=== PATIENT | female | born 1950 | race Caucasian/White ===

== ENCOUNTER 2017-04-20 01:38 | Inpatient (IN) | payer MEDICARE, OTHER ==
[~2017-04-20] VITALS: Ht 162.6 cm; Wt 77.1 kg
[~2017-04-20 01:38] MED LIST: DIOVAN160 MG PO; METFORMIN HCL500 MG PO; PRAVASTATIN SOD80 MG PO
[2017-04-20 02:12] LABS: BASOPHILS # (AUTO) 0.1 (0.0-0.1); BASOPHILS % 0.5 % (0.0-1.0); EOSINOPHILS # (AUTO) 0.5 (0.0-0.4); HEMATOCRIT 40.3 % (34.2-44.1); HEMOGLOBIN 13.2 g/dL (12.0-16.0); LYMPHOCYTES # (AUTO) 6.4 (1.0-3.2); LYMPHOCYTES % 42.8 % (18.0-39.1); MEAN CORPUSCULAR HEMOGLOBIN 30.3 pg (28-32); MEAN CORPUSCULAR HGB CONC 32.8 g/dL (31-35); MEAN CORPUSCULAR VOLUME 92.6 fL (81-99); NEUTROPHILS # (AUTO) 6.9 (2.1-6.9); NEUTROPHILS % 46.3 % (38.7-80.0); PLATELET COUNT 258 x10e3/uL (140-360); RED BLOOD COUNT 4.35 x10e6/uL (3.6-5.1); RED CELL DISTRIBUTION WIDTH 12.1 % (11.7-14.4)
[2017-04-20 02:20] LABS: INR 0.83; PARTIAL THROMBOPLASTIN TIME 24.7 seconds (23.8-35.5); PROTHROMBIN TIME 11.8 seconds (11.9-14.5)
[2017-04-20 02:29] LABS: ALANINE AMINOTRANSFERASE 26 IU/L (0-55); ALBUMIN 3.3 g/dL (3.5-5.0); ALBUMIN/GLOBULIN RATIO 0.9 (0.8-2.0); ALKALINE PHOSPHATASE 84 IU/L (40-150); ANION GAP 15.5 mmol/L (8-16); BLOOD UREA NITROGEN 26 mg/dL (7-26); BUN/CREATININE RATIO 23 (6-25); CALCIUM 8.7 mg/dL (8.4-10.2); CARBON DIOXIDE 22 mmol/L (22-29); CHLORIDE 104 mmol/L (98-107); CREATINE KINASE 28 IU/L (29-168); CREATININE, SERUM 1.11 mg/dL (0.57-1.11); EST GLOMERULAR FILTRATION RATE 49 ML/MIN (60-); GLUCOSE 290 mg/dL (74-118); MAGNESIUM 1.4 MG/DL (1.3-2.1); POTASSIUM 3.5 mmol/L (3.5-5.1); SODIUM 138 mmol/L (136-145)
[2017-04-20 02:35] LABS: B-TYPE NATRIURETIC PEPTIDE2 < 10.0 pg/mL (0-100)
--- NOTE | 2017-04-20 03:07 | Diagnostic Imaging Report ---
EXAM: CHEST SINGLE (PORTABLE), AP 1 view ORDER DATE: 04/20/2017 2:03 AM Time stamp on exam: 0230 hours INDICATION: Cough, shortness of breath COMPARISON: None FINDINGS: LINES/TUBES: None LUNGS: No consolidations or edema. Mild bibasilar atelectasis. PLEURA: No effusions or pneumothorax. HEART AND MEDIASTINUM: Normal size and contour. BONES AND SOFT TISSUES: No acute findings. IMPRESSION: Mild bibasilar atelectasis. Signed by: Dr. Khushbu Khan M.D. on 04/20/2017 3:03 AM
[2017-04-20] MEDS ORDERED: SODIUM CHLORIDE 0.9% 1000ML 1,000 ML IV STA ×2 (03:17→05:20)
[2017-04-20] MEDS ORDERED: VANCOMYCIN 1GM/NS 250 ML 250 ML IV STA (03:17)
[2017-04-20] MEDS: CEFEPIME HCL 2 GM VIAL IV SCH ×2 (03:40→15:30)
[2017-04-20] MEDS: AZITHROMYCIN 500MG/NS 250 ML 250 ML IV SCH (03:45)
[2017-04-20 05:40] LABS: BILIRUBIN,URINE NEGATIVE (NEGATIVE); KETONES,URINE NEGATIVE (NEGATIVE); LEUKOCYTE ESTERASE ,URINE TRACE (NEGATIVE); NITRITE,URINE NEGATIVE (NEGATIVE); PROTEIN,URINE DIPSTICK NEGATIVE (NEGATIVE); URINE UROBILINOGEN 0.2 mg/dL (0.2 - 1)
[2017-04-20 05:41] LABS: CLARITY,URINE CLEAR (CLEAR); COLOR,URINE YELLOW (YELLOW)
[2017-04-20 05:44] LABS: BACTERIA,URINE FEW /HPF; EPITHELIAL CELLS,URINE FEW /LPF; MUCUS,URINE MODERATE (RARE); RBC,URINE 0-5 /HPF (0-5)
[2017-04-20] MEDS ORDERED: DEXTROSE 50% SYRINGE 50 ML IV PRN (05:45)
[2017-04-20] MEDS ORDERED: ACETAMINOPHEN 325 MG TAB PO PRN (05:45)
[2017-04-20] MEDS: METHYLPREDNISOLONE SOD SUCC 125 MG/2ML VIAL IV SCH ×3 (06:07→22:13)
[2017-04-20] MEDS: SODIUM CHLORIDE 0.9% 1000ML 1,000 ML IV SCH ×2 (06:17→15:30)
--- OUTSIDE RECORDS SUMMARY | 2017-04-20 06:22 | XMS REPORT ---
Author Author [facility] Address Unknown Phone Unavailable Care Team Providers Care Arts Administrator Or Manager Name Role Phone JOO FONG Unavailable Unavailable Problems This patient has no known problems. Allergies, Adverse Reactions, Alerts This patient has no known allergies or adverse reactions. Medications This patient has no known medications. Results Test Description Test Time Test Comments Text Results Atomic Results Result Comments CHEST SINGLE (PORTABLE) [place] [address] Patient Name: ALBERT KRAMER MR #: [id number] : 1950 Age/Sex: 66/F Req #: [id number] Adm Physician: Ordered by: JOO FONG MD Report #: [id number] Location: ER Room/Bed: Procedure: [id number] DX/CHEST SINGLE (PORTABLE) Exam Date: 04/20/17 Exam Time: 0225 REPORT STATUS: Signed EXAM: CHEST SINGLE (PORTABLE), AP 1 view ORDER DATE: 04/20/2017 2:03 AM Time stamp on exam : 0230 hours INDICATION: Cough, shortness of breath COMPARISON: None FINDINGS: LINES/TUBES: None LUNGS: No consolidations or edema. Mild bibasilar atelectasis. PLEURA: No effusions or pneumothorax. HEART AND MEDIASTINUM: Normal size and contour. BONES AND SOFT TISSUES: No acute findings. IMPRESSION: Mild bibasilar atelectasis. Signed by: Dr. Loly Randall M.D. on 04/20/2017 3:03 AM Dictated By: LOLY RANDALL MD 2 Transcribed By: GLYNN on 04/20/17302 COPY TO: JOO FONG MD
[2017-04-20] MEDS: INSULIN REGULAR, HUMAN 100 UNIT/1 ML 3ML VIAL SQ SCH ×4 (07:30→22:13)
[2017-04-20 07:50] VITALS: BP 122/67
[2017-04-20 07:59] VITALS: BP 122/67
[2017-04-20 09:27] VITALS: BP 122/67
[2017-04-20] MEDS: PANTOPRAZOLE 40 MG 10ML VIAL IV SCH (10:22)
[2017-04-20] MEDS ORDERED: CHLORASEPTIC SPRAY 177 ML BTL MM PRN (10:30)
[2017-04-20 11:57] LABS: CHOL/HDL RATIO 4.1 (3.0-3.6)
[2017-04-20 12:31] VITALS: BP 121/57
[2017-04-20 12:40] LABS: CREATINE KINASE 28 IU/L (29-168)
--- NOTE | 2017-04-20 13:59 | History and Physical ---
PRIMARY CARE PHYSICIAN: Dr. Tubbs CHIEF COMPLAINT: Shortness of breath, cough, and loss of voice. HISTORY OF PRESENT ILLNESS: A 66-year-old woman with a history of asthma and pneumonia, now developing cough and shortness of breath, has been ongoing for about two weeks. Went to see a doctor, given doxycycline. For the past few days, she has been on steroid pack for more than a week. Worsened symptoms now with hoarse voice, came to the hospital. As she was found to be septic, she is admitted for further evaluation and management. PAST MEDICAL HISTORY: Diabetes mellitus type 2, pneumonia, asthma, hyperlipidemia, and hypertension. PAST SURGICAL HISTORY: Ankle surgery and rectal surgery. ALLERGIES: PER ELECTRONIC MEDICAL RECORDS. FAMILY/SOCIAL HISTORY: The patient is . She has 3 children. No alcohol, illicits, or cigarettes. MEDICATIONS: Per electronic medical records. REVIEW OF SYSTEMS: Denies any dizziness or chest pain. PHYSICAL EXAMINATION VITAL SIGNS: Have been reviewed. Pulse rate as high as 115. GENERAL: A sick-appearing woman, resting in the bed. HEENT: Anicteric. No oral lesions. She has hoarse voice. CARDIOVASCULAR: Normal S1 and S2. LUNGS: She has moderate breath sounds. ABDOMEN: Soft and nontender. EXTREMITIES: No edema or calf tenderness. NEUROLOGIC: She is alert and oriented times 3, moving all extremities. SKIN: Dry. PSYCHIATRIC: Flat affect. LABS: Reviewed. MEDICATIONS: Reviewed. ASSESSMENT AND PLAN: This is a 66-year-old woman. 1. Severe sepsis. She has acute kidney injury with leukocytosis, tachycardia, and urinary tract infection and other signs of infection. We will continue with antibiotics, IV cefepime and IV azithromycin and IV fluids. 2. Acute kidney injury. We will give IV fluids. 3. Urinary tract infection. Continue with treatment and followup labs. 4. Acute laryngitis. We will continue with antibiotics and IV steroids. 5. History of asthma. There is no significant wheezing at this time, but we will use nebulization treatment p.r.n. 6. Diabetes mellitus type 2. Glucose is 290. She is on steroids now . We will obtain hemoglobin A1c and lipid panel. 7. Hyperlipidemia. Continue with statin medication. 8. Hypertension. We will hold ARB at this time due to acute renal dysfunction. 9. Prophylaxis: We will use Lovenox and Pepcid. Job#: [id number] SAK
[2017-04-20 16:00] VITALS: BP 117/56
[2017-04-20] MEDS: FAMOTIDINE 20 MG TAB PO SCH (16:30)
[2017-04-20] MEDS: ENOXAPARIN SOD INJ 40 MG/0.4 ML SYR SC SCH (17:11)
[2017-04-20 20:00] VITALS: BP 121/60
[2017-04-20] MEDS: SIMVASTATIN 40 MG TAB PO SCH (22:13)
[2017-04-21] VITALS: BP 133/60
[2017-04-21] MEDS: SODIUM CHLORIDE 0.9% 1000ML 1,000 ML IV SCH ×3 (02:50→12:14)
[2017-04-21] MEDS: IPRATROPIUM BROMIDE 0.02% 2.5 ML NEB NEB PRN ×2 (03:10→11:00)
[2017-04-21] MEDS: ALBUTEROL SULF 0.083% NEB SOLN 3 ML NEB NEB PRN ×2 (03:10→10:59)
[2017-04-21] MEDS: AZITHROMYCIN 500MG/NS 250 ML 250 ML IV SCH (03:30)
[2017-04-21] MEDS: CEFEPIME HCL 2 GM VIAL IV SCH ×2 (03:30→15:30)
[2017-04-21 04:00] VITALS: BP 124/57
[2017-04-21] MEDS: METHYLPREDNISOLONE SOD SUCC 125 MG/2ML VIAL IV SCH ×3 (05:38→20:30)
[2017-04-21] MEDS: INSULIN REGULAR, HUMAN 100 UNIT/1 ML 3ML VIAL SQ SCH ×4 (07:30→20:45)
[2017-04-21] MEDS: FAMOTIDINE 20 MG TAB PO SCH ×2 (07:30→17:05)
[2017-04-21] MEDS: GUAIFENESIN/DEXTROMETHORPHAN LIQD 5 ML UDC NG SCH ×3 (07:30→21:58)
[2017-04-21 08:10] VITALS: BP 128/62
[2017-04-21] MEDS: PANTOPRAZOLE 40 MG 10ML VIAL IV SCH (08:56)
[2017-04-21] MEDS: BENZONATATE 100 MG CAP PO SCH ×3 (08:57→20:30)
[2017-04-21 09:23] VITALS: BP 128/62
[2017-04-21 12:38] VITALS: BP 100/57
[2017-04-21 14:51] LABS: CREATINE KINASE MB 2.9 ng/mL (0.00-5.00)
--- NOTE | 2017-04-21 15:48 | Progress Note ---
DATE: April 21, 2017 at 7 a.m. SUBJECTIVE: Overnight feeling better but still concerned about health. REVIEW OF SYSTEMS: Denies any dizziness. OBJECTIVE VITAL SIGNS: Reviewed and are within normal limits. GENERAL APPEARANCE: A tired-appearing woman resting in the bed. HEENT: Anicteric. Hoarse voice has improved to some degree. CARDIOVASCULAR: Normal S1 and S2. LUNGS: Moderate breath sounds, slightly reduced at the bases. ABDOMEN: Soft and nontender. Nondistended. EXTREMITIES: There is no edema or calf tenderness. NEUROLOGIC: Alert and oriented x3. Moving all extremities. SKIN: Dry. PSYCHIATRIC: Flat affect. LABS: Reviewed. MEDICATIONS: Reviewed. ASSESSMENT: A 66-year-old woman with: 1. Severe sepsis. 2. Acute kidney injury. 3. Urinary tract infection. 4. Acute laryngitis. 5. History of asthma. 6. Diabetes mellitus type 2. 7. Hypertension. 8. Hyperlipidemia. PLAN: 1. Continue antibiotics and follow up cultures. She is on IV cefepime and IV Azithromycin. 2. Continue IV fluids. 3. Follow up renal function. 4. Laryngitis is improving. 5. Schedule antitussive medications. 6. Obtain labs this morning. 7. Continue with physical therapy. 8. Hemoglobin A1c was 7.5, LDL 74 and triglycerides 153. Job#: [id number]
[2017-04-21 16:34] VITALS: BP 139/68
[2017-04-21] MEDS: ENOXAPARIN SOD INJ 40 MG/0.4 ML SYR SC SCH (17:08)
[2017-04-21] MEDS: SIMVASTATIN 40 MG TAB PO SCH (20:30)
[2017-04-22] MEDS: IPRATROPIUM BROMIDE 0.02% 2.5 ML NEB NEB PRN ×3 (01:45→20:10)
[2017-04-22] MEDS: ALBUTEROL SULF 0.083% NEB SOLN 3 ML NEB NEB PRN ×3 (01:45→20:10)
[2017-04-22] MEDS: AZITHROMYCIN 500MG/NS 250 ML 250 ML IV SCH (02:52)
[2017-04-22] MEDS: CEFEPIME HCL 2 GM VIAL IV SCH ×2 (02:52→14:37)
[2017-04-22] MEDS: GUAIFENESIN/DEXTROMETHORPHAN LIQD 5 ML UDC NG SCH ×3 (05:46→20:58)
[2017-04-22 07:00] VITALS: BP 119/61
[2017-04-22] MEDS: SODIUM CHLORIDE 0.9% 1000ML 1,000 ML IV SCH ×2 (07:30→14:15)
[2017-04-22 08:04] VITALS: BP 119/61
[2017-04-22] MEDS: FAMOTIDINE 20 MG TAB PO SCH ×2 (08:44→16:54)
[2017-04-22] MEDS: INSULIN REGULAR, HUMAN 100 UNIT/1 ML 3ML VIAL SQ SCH ×4 (08:44→21:01)
[2017-04-22] MEDS: BENZONATATE 100 MG CAP PO SCH ×3 (08:44→20:58)
[2017-04-22] MEDS: METHYLPREDNISOLONE SOD SUCC 125 MG/2ML VIAL IV SCH ×2 (08:44→20:58)
[2017-04-22] MEDS: PANTOPRAZOLE 40 MG 10ML VIAL IV SCH (08:44)
[2017-04-22 08:57] LABS: EOSINOPHILS % 0.1 % (0.0-6.0); HEMATOCRIT 30.7 % (34.2-44.1); HEMOGLOBIN 10.2 g/dL (12.0-16.0); LYMPHOCYTES # (AUTO) 1.4 (1.0-3.2); LYMPHOCYTES % 14.6 % (18.0-39.1); MEAN CORPUSCULAR HEMOGLOBIN 30.6 pg (28-32); MEAN CORPUSCULAR HGB CONC 33.2 g/dL (31-35); MEAN CORPUSCULAR VOLUME 92.2 fL (81-99); MONOCYTES # (AUTO) 0.2 (0.2-0.8); MONOCYTES % 2.2 % (4.4-11.3); NEUTROPHILS # (AUTO) 7.6 (2.1-6.9); NEUTROPHILS % 81.5 % (38.7-80.0); PLATELET COUNT 170 x10e3/uL (140-360); RED BLOOD COUNT 3.33 x10e6/uL (3.6-5.1); RED CELL DISTRIBUTION WIDTH 12.5 % (11.7-14.4)
[2017-04-22 09:18] LABS: CALCIUM 7.4 mg/dL (8.4-10.2); CREATININE, SERUM 0.96 mg/dL (0.57-1.11)
--- NOTE | 2017-04-22 09:43 | Progress Note ---
DATE: April 22, 2017 TIME: 6:45 a.m. OVERNIGHT: No events. REVIEW OF SYSTEMS: Denies any dizziness. VITAL SIGNS: Reviewed. OBJECTIVE GENERAL: A tired-appearing woman resting in bed. HEENT: Anicteric. CARDIOVASCULAR: Normal S1 and S2. LUNGS: Moderate breath sounds, slightly reduced at the bases. ABDOMEN: Soft, nontender and nondistended. EXTREMITIES: No edema. SKIN: Dry. PSYCHIATRIC: Normal affect. LABS: Reviewed. MEDICATIONS: Reviewed. ASSESSMENT: A 66-year-old woman. 1. Severe sepsis. 2. Acute kidney injury. 3. Urinary tract infection. 4. Acute laryngitis. 5. History of asthma. 6. Diabetes mellitus, type 2. Hemoglobin A1c 7.5, LDL 74, triglycerides 153. 7. Hypertension. 8. Hyperlipidemia. PLAN 1. Continue antibiotics and continue IV steroids. Continue titrating down. 2. Continue to receive IV fluids. 3. Continue antitussive medication. 4. Follow up labs. Obtain labs this morning. 5. Discharge planning to home. Job#: [id number]
[2017-04-22 13:09] VITALS: BP 142/79
[2017-04-22 16:57] VITALS: BP 163/83
[2017-04-22] MEDS: ENOXAPARIN SOD INJ 40 MG/0.4 ML SYR SC SCH (17:00)
[2017-04-22 20:00] VITALS: BP 137/65
[2017-04-22] MEDS: SIMVASTATIN 40 MG TAB PO SCH (20:58)
[2017-04-22 23:15] VITALS: BP 137/65
[2017-04-23] VITALS: BP 126/58
[2017-04-23] MEDS: SODIUM CHLORIDE 0.9% 1000ML 1,000 ML IV SCH (02:06)
[2017-04-23] MEDS: CEFEPIME HCL 2 GM VIAL IV SCH (03:58)
[2017-04-23] MEDS: AZITHROMYCIN 500MG/NS 250 ML 250 ML IV SCH (03:58)
[2017-04-23 04:00] VITALS: BP 158/71
[2017-04-23] MEDS: GUAIFENESIN/DEXTROMETHORPHAN LIQD 5 ML UDC NG SCH (06:04)
[2017-04-23] MEDS ORDERED: Chloraseptic MM (06:55)
[2017-04-23] MEDS ORDERED: FAMOTIDINE20 MG PO (06:55)
[2017-04-23] MEDS ORDERED: PREDNISONE20 MG PO (06:55)
[2017-04-23] MEDS ORDERED: TESSALON PERLE100 MG PO (06:55)
[2017-04-23] MEDS ORDERED: LEVAQUIN500 MG PO (06:55)
[2017-04-23] MEDS ORDERED: Guaifenesin/Dextromethorphan NG (06:55)
[2017-04-23 07:05] VITALS: BP 161/84
[2017-04-23 08:00] VITALS: BP 161/84
[2017-04-23] MEDS: INSULIN REGULAR, HUMAN 100 UNIT/1 ML 3ML VIAL SQ SCH ×2 (09:12→11:30)
[2017-04-23] MEDS: PANTOPRAZOLE 40 MG 10ML VIAL IV SCH (09:12)
[2017-04-23] MEDS: METHYLPREDNISOLONE SOD SUCC 125 MG/2ML VIAL IV SCH (09:12)
[2017-04-23] MEDS: FAMOTIDINE 20 MG TAB PO SCH (09:12)
[2017-04-23] MEDS: BENZONATATE 100 MG CAP PO SCH (09:12)
[2017-04-23 11:54] VITALS: BP 162/88
== END 2017-04-23 13:28 | disposition home or self-care (01) | DRG 872 ==
LOC: ER 01:38 → MED/SURG2 06:19
PROVIDERS: ADMIT Internal Medicine; ATTEND Internal Medicine
PROC: 05HA33Z Insertion of Infusion Device into Left Brachial Vein, Percutaneous Approach (ICD-10-PCS; principal; 2017-04-21)
DX: A41.9 Sepsis, unspecified organism (principal); N17.9 Acute kidney failure, unspecified; N39.0 Urinary tract infection, site not specified; J04.0 Acute laryngitis; R65.20 Severe sepsis without septic shock; I10 Essential (primary) hypertension; E11.9 Type 2 diabetes mellitus without complications; E78.5 Hyperlipidemia, unspecified; J45.909 Unspecified asthma, uncomplicated; F41.9 Anxiety disorder, unspecified
CPT/HCPCS: 36415; 36568; 71045; 80048; 80053; 80061; 81001; 82550; 82553; 82948; 83036; 83518; 83605; 83735; 83880; 84484; 85025; 85610; 85730; 87040; 87070; 87086; 87400; 93005; 94640; 96372; 99284; J0456; J0692; J1650; J2930; J7030

== ENCOUNTER → 2019-05-13 | Day surgery (SDC) | payer MEDICARE ==
[2019-05-12 13:29] LABS: BASOPHILS % 0.4 % (0.0-1.0); EOSINOPHILS # (AUTO) 0.2 (0.0-0.4); EOSINOPHILS % 1.8 % (0.0-6.0); HEMATOCRIT 38.2 % (34.2-44.1); HEMOGLOBIN 12.6 g/dL (12.0-16.0); LYMPHOCYTES # (AUTO) 1.9 (1.0-3.2); LYMPHOCYTES % 20.4 % (18.0-39.1); MEAN CORPUSCULAR HEMOGLOBIN 29.9 pg (28-32); MEAN CORPUSCULAR VOLUME 90.5 fL (81-99); MONOCYTES # (AUTO) 0.7 (0.2-0.8); MONOCYTES % 7.7 % (4.4-11.3); NEUTROPHILS # (AUTO) 6.5 (2.1-6.9); NEUTROPHILS % 69.4 % (38.7-80.0); PLATELET COUNT 226 x10e3/uL (140-360); RED BLOOD COUNT 4.22 x10e6/uL (3.6-5.1); RED CELL DISTRIBUTION WIDTH 12.7 % (11.7-14.4)
[2019-05-12 13:45] LABS: ANION GAP 10.4 mmol/L (8-16); BLOOD UREA NITROGEN 20 mg/dL (7-26); BUN/CREATININE RATIO 22 (6-25); CALCIUM 9.1 mg/dL (8.4-10.2); CARBON DIOXIDE 26 mmol/L (22-29); CHLORIDE 108 mmol/L (98-107); CREATININE, SERUM 0.91 mg/dL (0.57-1.11); EST GLOMERULAR FILTRATION RATE > 60 ML/MIN (60-); GLUCOSE 180 mg/dL (74-118); POTASSIUM 4.4 mmol/L (3.5-5.1); SODIUM 140 mmol/L (136-145)
--- NOTE | 2019-05-12 14:18 | Diagnostic Imaging Report ---
Exam: PA and lateral chest radiograph Clinical history: Preoperative clearance Comparison: April 20, 2017 Findings: Thickening of the right horizontal fissure is again noted. There is no evidence of pulmonary consolidation, pleural effusion, or pneumothorax. The cardiac size is within normal limits. The regional osseous structures are unremarkable. Next Impression: 1. No radiographic evidence of acute cardiorespiratory disease. Signed by: Dr. Jose Martin Martin MD on 05/12/2019 2:16 PM
[~2019-05-13] MED LIST changes: +ACETAMINOPHEN 1000 MG/100 ML IV ONE; +ACETAMINOPHEN/CODEINE 300MG - 30MG TAB ONE; +ASPIR 8181 MG PO; +BACITRACIN 50,000 UNIT VIAL ONE; +BUPIVACAINE HCL 0.5% INJ 30 ML VIAL INJ ONE; +CEFAZOLIN SOD 1 GM/NS 50ML 100 ML IV ONE; +Chloraseptic MM; +DEXAMETHASONE SOD PHOS INJ 4 MG/ML VIAL ONE; +EPHEDRINE SULFATE INJ 50 MG/ML VIAL ONE; +FAMOTIDINE20 MG PO; +FENTANYL CITRATE/PF 100MCG/2 ML INJ ONE; +Guaifenesin/Dextromethorphan NG; +KETOROLAC TROMETHAMINE 30 MG/ML VIAL ONE; +LEVAQUIN500 MG PO; +LIDOCAINE HCL 2% LOCAL INJ 5 ML SDV VIAL INJ ONE; +LOSARTAN POTASS25 MG PO; +MIDAZOLAM HCL 2 MG/2 ML VIAL ONE; +ONDANSETRON HCL INJ 2MG/ML 2ML 2 MG/ML VIAL ONE; +PREDNISONE20 MG PO; +PROPOFOL IV EMULSION 10 MG/ML 20 ML VIAL ONE; +SEVOFLURANE INHAL SOLN 250 ML PEN BTL ONE; +TESSALON PERLE100 MG PO; +TYLENOL WITH C1 EACH PO
[2019-05-13 13:00] VITALS: BP 137/74
--- NOTE | 2019-05-16 00:28 | Operative Report ---
DATE OF PROCEDURE: 05/13/2019 SURGEON: Kyle Nixon MD PREOPERATIVE DIAGNOSIS: Right bimalleolar ankle fracture. POSTOPERATIVE DIAGNOSIS: Right bimalleolar ankle fracture. OPERATION PROCEDURE PERFORMED: The patient underwent closed reduction of the right ankle mortise and open reduction and internal fixation of the right fibular fracture. Allograft bone grafting of the comminuted right fibular fracture, open reduction and internal fixation of the right medial malleolus fracture. RIG MANAGER: SUBHASH Chinchilla ANESTHESIA: General endotracheal intubation anesthesia. IV FLUIDS: Per the anesthesia record. BLOOD LOSS: Normal. BRIEF DESCRIPTION OF THE PATIENT'S OPERATIVE PROCEDURE: Ms. Field was taken to the operating room and placed in supine position on the operating table. Following induction of general anesthesia as well as endotracheal intubation, the patient's right lower extremity was examined under anesthesia. She was noted to have bruising and swelling about the right ankle joint. There were also fracture blisters over the posterior and posteromedial aspect of the ankle. These fracture blisters were not in the area where surgical incisions were required. The patient's lower extremity was prepped and draped in standard surgical fashion. The case was begun by reducing the patient's ankle mortise under visualization using fluoroscopy. An incision was then created over the fibula laterally. This incision was carried through the skin only. Blunt dissection was used to deepen the incision to the level of the patient's fracture site. The patient's fracture was found to be displaced and comminuted. The fracture was reduced and held in place with a fracture reduction clamp. Our plate was contoured to the lateral aspect of the fibula and then affixed to the fibula with combinations of both cortical and locking screws, holding the fracture in its reduced position. The position of fracture was again confirmed using fluoroscopy and found to be appropriate. This wound was copiously irrigated. The comminuted segment of the fibula was then bone grafted with allograft bone graft. This wound was then closed in a multilayer fashion. Attention was then turned to the patient's medial malleolus fracture. Fluoroscopic evaluation of the ankle demonstrated reduction of the fibula and realignment of the ankle mortise, but the medial malleolus was remained displaced. A curvilinear incision centered over the medial malleolus was carried through the skin only. Blunt dissection was used to deepen the incision through the subcutaneous tissues and care was taken to protect the saphenous vein and nerve. This exposed the displaced medial malleolus fracture. The fracture site was cleaned thoroughly. The fracture was then reduced and held in place with a fracture reduction clamp. Two pins from the 4.0 cannulated screw system were then advanced from distal to proximal transfixing the fracture into reduced position. The position of the stent was then confirmed using fluoroscopy. Two 4.0 cannulated screws were then advanced over the pins compressing the fracture at the site of the injury. The position of the screws was also confirmed using fluoroscopy and found to be appropriate. The wound was again copiously irrigated. The soft tissues were closed in a multilayer fashion. Sterile dressings were applied as well as a well-padded three sided splint. The patient was then awakened and taken to postanesthesia care unit in stable condition. Anastasia Ponce acted as surveyor instrument assistant for this case and was necessary for the prepping and draping of the patient as well as the retraction of soft tissues and the closure of the wounds and application of splint to allow this case to be successful. MD JAYCE Rodriguez/BIRDIE /[id number]
== END | disposition home or self-care (01) ==
LOC: OR 06:47
PROVIDERS: ATTEND Specialist
DX: S82.61XA Displaced fracture of lateral malleolus of right fibula, initial encounter for closed fracture (principal); S82.51XA Displaced fracture of medial malleolus of right tibia, initial encounter for closed fracture; Z88.8 Allergy status to other drugs, medicaments and biological substances; J45.909 Unspecified asthma, uncomplicated; E11.9 Type 2 diabetes mellitus without complications; I10 Essential (primary) hypertension; E78.00 Pure hypercholesterolemia, unspecified; Z01.810 Encounter for preprocedural cardiovascular examination; Z01.812 Encounter for preprocedural laboratory examination; Z01.811 Encounter for preprocedural respiratory examination; K21.9 Gastro-esophageal reflux disease without esophagitis; Z79.84 Long term (current) use of oral hypoglycemic drugs; E78.5 Hyperlipidemia, unspecified
CPT/HCPCS: 27766; 27792; 36415 ×2; 71046; 80048; 82948; 85025; 93005; C1713 ×4; J0131; J0690; J1100; J1885; J2001; J2250; J2405; J2704; J3010